=== PATIENT | female | born 1930 | race Caucasian/White ===

== ENCOUNTER → 2018-11-19 | Outpatient (CLI) | payer MEDICARE, OTHER ==
[~2018-11-19] MED LIST: ALBU2.5V NPPB; ASPI-496 PO; ATEN25TA PO; CILO100T PO; ESTR42.53 VG; HYDR12.547 PO; LEVO500T8 PO; METO25TA91 PO; OSEL75CA PO; PRAV10TA2 PO; PRED5TAB PO
== END | disposition home or self-care (01) ==
LOC: RAD 16:29
PROVIDERS: ATTEND Family Medicine
DX: J18.1 Lobar pneumonia, unspecified organism (principal); J44.9 Chronic obstructive pulmonary disease, unspecified; M41.9 Scoliosis, unspecified
CPT/HCPCS: 71046

== ENCOUNTER → 2018-12-06 | Outpatient (CLI) | payer MEDICARE, OTHER | END | disposition home or self-care (01) | LOC: CVU 15:21 | PROVIDERS: ATTEND Internal Medicine Cardiovascular Disease | DX: I65.21 Occlusion and stenosis of right carotid artery (principal); E78.2 Mixed hyperlipidemia | CPT/HCPCS: 93880 ==

== ENCOUNTER → 2018-12-10 | Outpatient (CLI) | payer MEDICARE, OTHER | END | disposition home or self-care (01) | LOC: RAD 12:10 | PROVIDERS: ATTEND Family Medicine | DX: J44.0 Chronic obstructive pulmonary disease with (acute) lower respiratory infection (principal); I70.0 Atherosclerosis of aorta | CPT/HCPCS: 71046 ==